=== PATIENT | female | born 1970 | race Caucasian/White ===

== ENCOUNTER → 2022-07-16 | Day surgery (SDC) | payer OTHER | END | disposition home or self-care (01) | LOC: FMAMMOTONE 09:16 | PROVIDERS: ATTEND Physician Assistant | PROC: 0HBU3ZX Excision of Left Breast, Percutaneous Approach, Diagnostic (ICD-10-PCS; principal; 2022-07-16) | DX: R92.0 Mammographic microcalcification found on diagnostic imaging of breast (principal) | CPT/HCPCS: 19081; 76098-TC-FY; 87899; 88305-TC; A4648 ==

== ENCOUNTER → 2023-02-25 | Day surgery (SDC) | payer OTHER | END | disposition home or self-care (01) | LOC: FRADMRI 08:40 → FRADUS-SUR 08:40 | PROVIDERS: ATTEND Physician Assistant | PROC: 0HBT3ZX Excision of Right Breast, Percutaneous Approach, Diagnostic (ICD-10-PCS; principal; 2023-02-25) | DX: Z53.8 Procedure and treatment not carried out for other reasons (principal); N63.10 Unspecified lump in the right breast, unspecified quadrant | CPT/HCPCS: 19085; A9579; C1887 ==